=== PATIENT | female | born 1945 | race Caucasian/White ===

== ENCOUNTER 2020-04-12 08:01 | Emergency (ER) | payer OTHER ==
[~2020-04-12] VITALS: Ht 160 cm; Wt 87.1 kg
[2020-04-12] MEDS ORDERED: TOPROL XL25 M1 (08:23)
[2020-04-12] MEDS ORDERED: COZAAR25 MG (08:23)
[2020-04-12] MEDS ORDERED: HYDROCHLOROTHIA25 MG (08:29)
[2020-04-12] MEDS ORDERED: AVAPRO150 MG (08:30)
== END 2020-04-12 11:05 | disposition home or self-care (01) ==
LOC: ER 08:01
DX: M75.21 Bicipital tendinitis, right shoulder (principal)